=== PATIENT | female | born 1990 | race Caucasian/White ===

== ENCOUNTER 2016-09-05 22:23 | Emergency (ER) | payer OTHER ==
[2016-09-05 23:19] LABS: ABSOLUTE EOSINOPHILS # (AUTO) 0.2 10^3/uL (0.0-0.6); ABSOLUTE LYMPHOCYTES (AUTO) 3.1 10^3/uL (0.5-4.7); ABSOLUTE MONOCYTES (AUTO) 0.7 10^3/uL (0.1-1.4); BASOPHILS % (AUTO) 0.2 % (0-2); EOSINOPHILS % (AUTO) 2.3 % (0-6); HEMOGLOBIN 12.5 g/dL (12.0-15.5); HGB HCT DIFFERENCE -3.5; LYMPHOCYTES % (AUTO) 44.5 % (13-45); MEAN CORPUSCULAR HEMOGLOBIN 23.5 pg (27.0-33.4); MEAN CORPUSCULAR HGB CONC 30.6 g/dL (32.0-36.0); MEAN CORPUSCULAR VOLUME 77 fl (80-97); MONOCYTES % (AUTO) 9.8 % (3-13); RED BLOOD COUNT 5.34 10^6/uL (3.72-5.28); SEGMENTED NEUTROPHILS % (AUTO) 43.2 % (42-78)
[2016-09-05 23:38] LABS: ALANINE AMINOTRANSFERASE 37 U/L (9-52); ALBUMIN 4.3 g/dL (3.5-5.0); ALKALINE PHOSPHATASE 70 U/L (38-126); ANION GAP 12 (5-19); ASPARTATE AMINO TRANSFERASE 28 U/L (14-36); BILIRUBIN,DIRECT 0.3 mg/dL (0.0-0.4); BILIRUBIN,TOTAL 0.3 mg/dL (0.2-1.3); BLOOD UREA NITROGEN 14 mg/dL (7-20); CALCIUM 8.8 mg/dL (8.4-10.2); CARBON DIOXIDE 22 mmol/L (22-30); CHLORIDE 108 mmol/L (98-107); GLUCOSE 91 mg/dL (75-110); POTASSIUM 4.2 mmol/L (3.6-5.0); SODIUM 142.3 mmol/L (137-145); TOTAL PROTEIN 6.7 g/dL (6.3-8.2)
[2016-09-05] MEDS ORDERED: OXYCODONE-ACETAMINOPHEN 5-325 MG TABLET PO ONE (23:43)
--- NOTE | 2016-09-05 23:45 | ER Document Report ---
ED General - General Chief Complaint: Pain All Over Stated Complaint: BONE PAIN Time Seen by Provider: 09/05/16 23:26 Notes: Patient is a 25-year-old female with a history of lupus including lupus nephritis who comes emergency department for chief complaint of joint pain in her shoulders, knees, and ankles. She also has some pain in her wrist. She states that she arrived to this area 3 days ago and has had increased symptoms since that time. She is also looking for referral to primary care for the area. Patient denies any fevers, chills, shortness of breath, dizziness, swelling. TRAVEL OUTSIDE OF THE [place] IN LAST 30 DAYS: No - Related Data Allergies/Adverse Reactions: gabapentin Allergy (Verified 09/05/16 22:32) heparin Allergy (Verified 09/05/16 22:32) Past Medical History - General Information source: Patient - Social History Smoking Status: Never Smoker Frequency of alcohol use: None Drug Abuse: None Lives with: Spouse/Significant other Family History: Reviewed & Not Pertinent Patient has suicidal ideation: No Patient has homicidal ideation: No - Medical History Medical History: Negative Renal/ Medical History: Denies: Hx Peritoneal Dialysis Surgical Hx: Negative - Immunizations Immunizations up to date: Yes Hx Diphtheria, Pertussis, Tetanus Vaccination: Yes Review of Systems - Review of Systems Constitutional: No symptoms reported EENT: No symptoms reported Cardiovascular: No symptoms reported Respiratory: No symptoms reported Gastrointestinal: No symptoms reported Genitourinary: No symptoms reported Female Genitourinary: No symptoms reported Musculoskeletal: See HPI Skin: No symptoms reported Hematologic/Lymphatic: No symptoms reported Neurological/Psychological: No symptoms reported Physical Exam - Vital signs Vitals: Temp Pulse Resp BP Pulse Ox 97.6 F 79 18 115/71 99 09/05/16 22:29 09/05/16 22:29 09/05/16 22:29 09/05/16 22:29 09/05/16 22:29 Interpretation: Normal - General General appearance: Appears well, Alert In distress: None - HEENT Head: Normocephalic, Atraumatic Eyes: Normal Pupils: PERRL - Respiratory Respiratory status: No respiratory distress Chest status: Nontender Breath sounds: Normal Chest palpation: Normal - Cardiovascular Rhythm: Regular Heart sounds: Normal auscultation Murmur: No - Abdominal Inspection: Normal Distension: No distension Bowel sounds: Normal Tenderness: Nontender Organomegaly: No organomegaly - Back Back: Normal, Nontender - Extremities General upper extremity: Normal inspection, Nontender, Normal color, Normal ROM , Normal temperature General lower extremity: Other - There is some tenderness over both knees and both ankles on exam, no significant swelling or erythema, normal range of motion , normal distal neurovascular exam - Neurological Neuro grossly intact: Yes Cognition: Normal Orientation: AAOx4 [place] Coma Scale Eye Opening: Spontaneous [place] Coma Scale Verbal: Oriented [place] Coma Scale Motor: Obeys Commands [place] Coma Scale Total: 15 Speech: Normal Motor strength normal: LUE, RUE, LLE, RLE Sensory: Normal - Psychological Associated symptoms: Normal affect, Normal mood - Skin Skin Temperature: Warm Skin Moisture: Dry Skin Color: Normal Course - Re-evaluation Re-evalutation: Patient with some tenderness over her joints but no significant swelling, erythema, or concerning abnormality. Unremarkable vital signs. Unremarkable lab workup performed on protocol. Patient reporting difficulty sleeping due to pain. I did agree to give patient medication to take as needed for pains related to lupus is pending her follow- up with primary care and referral to rheumatology for additional management. Discussed steroid use, anti-inflammatories, she states that she is actually going to call her beauty counselor back home to see which anti-inflammatory they recommended for and they told her to avoid all but one. She states she has had poor results and bad side effects with prednisone in the past. - Vital Signs Vital signs: Temp Pulse Resp BP Pulse Ox 97.9 F 74 17 109/64 100 09/06/16 00:08 09/06/16 00:08 09/06/16 00:08 09/06/16 00:08 09/06/16 00:08 - Laboratory Result Diagrams: 09/05/16 22:40 09/05/16 22:40 Laboratory results interpreted by me: 09/05/16 09/05/16 22:40 22:40 RBC 5.34 H MCV 77 L MCH 23.5 L MCHC 30.6 L RDW 17.0 H Chloride 108 H Discharge - Discharge Clinical Impression: Joint pain, Lupus Condition: Stable Disposition: HOME, SELF-CARE Additional Instructions: Your kidney functioning is normal. No concerning abnormalities on your evaluation today. Continue Tylenol for pain and/or an anti-inflammatory of choice as recommended in the past by your beauty counselor. if needed take the prescribed pain medication. Follow closely with primary care referral for additional management including referral to rheumatology. Return to emergency department for any concerning or worsening symptoms including fever, shortness of breath, or any other concerning symptoms. Prescriptions: Morphine Sulfate [Morphine Ir 15 Mg Tablet] 15 mg PO Q4HP PRN #12 tablet PRN Reason: Referrals: ANAMIKA OSUNA MD [ACTIVE STAFF] - Follow up as needed
[2016-09-06 00:09] VITALS: BP 109/64
== END 2016-09-06 00:06 | disposition home or self-care (01) ==
LOC: ER 22:23
DX: M32.14 Glomerular disease in systemic lupus erythematosus (principal); Z88.8 Allergy status to other drugs, medicaments and biological substances; Z88.6 Allergy status to analgesic agent
CPT/HCPCS: 36415; 80053; 85025; 99283

== ENCOUNTER 2017-02-08 12:01 | Emergency (ER) | payer OTHER, MEDICARE ==
--- NOTE | 2017-02-08 12:34 | ER Document Report ---
ED Medical Screen (RME) - General Chief Complaint: Post Surgical Pain Stated Complaint: NECK HEAD PAIN Time Seen by Provider: 02/08/17 12:32 Notes: Last Wednesday patient had a lymph node dissection of her neck done at [facility] in [place]. She states that she is having a lot of pain around the site of the drain. She states that she was told to get the drain removed when she had 30 mL or less of fluid coming from it. She states she tried to be seen at the [facility] but they would not give her an appointment for 2 weeks. She states she has a history of thyroid cancer and they were checking for lymphoma. TRAVEL OUTSIDE OF THE [place] IN LAST 30 DAYS: No - Related Data Allergies/Adverse Reactions: gabapentin Allergy (Verified 02/08/17 12:05) heparin Allergy (Verified 02/08/17 12:05) hydroxychloroquine Allergy (Verified 02/08/17 12:05) Home Medications: Current Home Medications Acetaminophen with Codeine [Tylenol #3 Tablet] 300 mg PO PRN PRN 02/08/17 [ History] Levothyroxine Sodium 125 mcg PO DAILY 02/08/17 [History] Mycophenolate Mofetil [Cellcept] 1,000 mg PO DAILY 02/08/17 [History] Past Medical History - Social History Chew tobacco use (# tins/day): No Frequency of alcohol use: Occasional Drug Abuse: None Renal/ Medical History: Denies: Hx Peritoneal Dialysis - Immunizations Immunizations up to date: Yes Hx Diphtheria, Pertussis, Tetanus Vaccination: Yes Physical Exam - Vital signs Vitals: Temp Pulse Resp BP Pulse Ox 98.2 F 76 16 103/69 98 02/08/17 12:12 02/08/17 12:12 02/08/17 12:12 02/08/17 12:12 02/08/17 12:12 Course - Vital Signs Vital signs: Temp Pulse Resp BP Pulse Ox 98.2 F 76 16 103/69 98 02/08/17 12:12 02/08/17 12:12 02/08/17 12:12 02/08/17 12:12 02/08/17 12:12
[2017-02-08 13:21] LABS: ABSOLUTE EOSINOPHILS # (AUTO) 0.2 10^3/uL (0.0-0.6); ABSOLUTE LYMPHOCYTES (AUTO) 2.4 10^3/uL (0.5-4.7); ABSOLUTE MONOCYTES (AUTO) 0.6 10^3/uL (0.1-1.4); ABSOLUTE NEUT (AUTO) 4.4 10^3/uL (1.7-8.2); BASOPHILS % (AUTO) 0.4 % (0-2); EOSINOPHILS % (AUTO) 2.3 % (0-6); HEMATOCRIT 40.4 % (36.0-47.0); HEMOGLOBIN 13.1 g/dL (12.0-15.5); HGB HCT DIFFERENCE -1.1; LYMPHOCYTES % (AUTO) 32.1 % (13-45); MEAN CORPUSCULAR HEMOGLOBIN 24.2 pg (27.0-33.4); MEAN CORPUSCULAR HGB CONC 32.3 g/dL (32.0-36.0); MEAN CORPUSCULAR VOLUME 75 fl (80-97); MONOCYTES % (AUTO) 7.3 % (3-13); RED BLOOD COUNT 5.38 10^6/uL (3.72-5.28); RED CELL DISTRIBUTION WIDTH 16.6 % (11.5-14.0); SEGMENTED NEUTROPHILS % (AUTO) 57.9 % (42-78); WHITE BLOOD COUNT 7.6 10^3/uL (4.0-10.5)
[2017-02-08 13:42] LABS: ALANINE AMINOTRANSFERASE 53 U/L (9-52); ALBUMIN 4.5 g/dL (3.5-5.0); ALKALINE PHOSPHATASE 71 U/L (38-126); ANION GAP 11 (5-19); ASPARTATE AMINO TRANSFERASE 36 U/L (14-36); BILIRUBIN,DIRECT 0.2 mg/dL (0.0-0.4); BILIRUBIN,TOTAL 0.2 mg/dL (0.2-1.3); BLOOD UREA NITROGEN 11 mg/dL (7-20); CALCIUM 9.2 mg/dL (8.4-10.2); CARBON DIOXIDE 28 mmol/L (22-30); CHLORIDE 103 mmol/L (98-107); GLUCOSE 83 mg/dL (75-110); POTASSIUM 4.6 mmol/L (3.6-5.0); SODIUM 142.1 mmol/L (137-145); TOTAL PROTEIN 6.8 g/dL (6.3-8.2)
--- NOTE | 2017-02-08 15:55 | ER Document Report ---
ED General - General Chief Complaint: Post Surgical Pain Stated Complaint: NECK HEAD PAIN Time Seen by Provider: 02/08/17 12:32 Information source: Patient, Friend TRAVEL OUTSIDE OF THE [place] IN LAST 30 DAYS: No - HPI Context: 26-year-old female presents today with need of her WES drain to be removed from the left-sided her neck after she had a left dissection on Wednesday, [address] Lm Small, at [facility] in [facility]. Patient has a history of thyroid cancer, this was done to see if she has any malignancy, that was negative. Denies any fevers or chills. Patient has been draining only 5 mL's today. Patient was scheduled to have her drain removed today if she was still in [facility]. Denies any chest pain, shortness of breath, nausea, vomiting , blurred vision, double vision, loss of vision. Denies any abdominal pain, pelvic pain. Eating and drink without issues. Denies any purulent drainage. She has a follow-up scheduled in 3 weeks - Related Data Allergies/Adverse Reactions: gabapentin Allergy (Verified 02/08/17 12:05) heparin Allergy (Verified 02/08/17 12:05) hydroxychloroquine Allergy (Verified 02/08/17 12:05) Home Medications: Current Home Medications Acetaminophen with Codeine [Tylenol #3 Tablet] 300 mg PO PRN PRN 02/08/17 [ History] Levothyroxine Sodium 125 mcg PO DAILY 02/08/17 [History] Mycophenolate Mofetil [Cellcept] 1,000 mg PO DAILY 02/08/17 [History] Past Medical History - General Information source: Patient - Social History Smoking Status: Never Smoker Chew tobacco use (# tins/day): No Frequency of alcohol use: Occasional Drug Abuse: None Family History: Reviewed & Not Pertinent Patient has suicidal ideation: No Patient has homicidal ideation: No Renal/ Medical History: Denies: Hx Peritoneal Dialysis - Immunizations Immunizations up to date: Yes Hx Diphtheria, Pertussis, Tetanus Vaccination: Yes Review of Systems - Review of Systems Constitutional: See HPI EENT: No symptoms reported Cardiovascular: No symptoms reported Respiratory: No symptoms reported Gastrointestinal: No symptoms reported Genitourinary: No symptoms reported Musculoskeletal: No symptoms reported Skin: See HPI Hematologic/Lymphatic: No symptoms reported Neurological/Psychological: No symptoms reported -: Yes All other systems reviewed and negative Physical Exam - Vital signs Vitals: Temp Pulse Resp BP Pulse Ox 98.2 F 76 16 103/69 98 02/08/17 12:12 02/08/17 12:12 02/08/17 12:12 02/08/17 12:12 02/08/17 12:12 Interpretation: Normal - General General appearance: Appears well In distress: None - HEENT Head: Normocephalic Eyes: Normal Cornea: Normal Extraocular movements intact: Yes Ears: Normal External canal: Normal Tympanic membrane: Normal Hearing loss: Left Sinus: Normal Nasal: Normal Mouth/Lips: Normal Mucous membranes: Normal Pharynx: Normal Neck: Normal, Other - left WES drain intact with sutures, no surrounding erythema , induration, warmth to touch or drainage around insertion site. WES drain with serous fluid. - Respiratory Respiratory status: No respiratory distress Chest status: Nontender Breath sounds: Normal Chest palpation: Normal - Cardiovascular Rhythm: Regular Heart sounds: Normal auscultation Normal capillary refill: Yes - Abdominal Inspection: Normal Distension: No distension Bowel sounds: Normal Tenderness: Nontender Organomegaly: No organomegaly - Psychological Associated symptoms: Normal affect, Normal mood - Skin Skin Temperature: Warm Skin Moisture: Dry Skin Color: Normal - see HEENT note with regards to the drain Course - Re-evaluation Re-evalutation: 02/08/17 15:55 After performing a Medical Screening Examination, I estimate there is LOW risk for CENTRAL CORD SYNDROME, EPIDURAL MASS LESION, SEVERE SPINAL STENOSIS, ARTERIAL DISSECTION, MENINGITIS, or ACUTE CORONARY SYNDROME, thus I consider the discharge disposition reasonable. I have reevaluated this patient multiple times and no significant life threatening changes are noted. The patient and I have discussed the diagnosis and risks, and we agree with discharging home to follow-up on an outpatient basis with the understanding that symptoms and presentations can change. We also discussed returning to the Emergency Department immediately if new or worsening symptoms occur. We have discussed the symptoms which are most concerning (e.g., saddle anesthesia, urinary or bowel incontinence or retention, changing or worsening pain) that necessitate immediate return. - Vital Signs Vital signs: Temp Pulse Resp BP Pulse Ox 98.2 F 76 16 103/69 98 02/08/17 12:12 02/08/17 12:12 02/08/17 12:12 02/08/17 12:12 02/08/17 12:12 - Laboratory Result Diagrams: 02/08/17 13:08 02/08/17 13:08 Laboratory results interpreted by me: 02/08/17 02/08/17 13:08 13:08 RBC 5.38 H MCV 75 L MCH 24.2 L RDW 16.6 H Creatinine 0.50 L ALT 53 H Discharge - Discharge Clinical Impression: Change or removal of drains Condition: Good Disposition: HOME, SELF-CARE Additional Instructions: Follow-up with as directed. Return to emergency room signs and symptoms become worse from drain removal. Monitor for any fevers or chills, take ibuprofen and Tylenol as needed for pain. Follow-up with PCP within 24 hours. Referrals: ROLLY LYNNE MD [COMMUNITY BASED STAFF] - Follow up as needed
[2017-02-08 17:04] VITALS: BP 106/59
== END 2017-02-08 17:04 | disposition home or self-care (01) ==
LOC: ER 12:01
DX: Z48.03 Encounter for change or removal of drains (principal); Z85.850 Personal history of malignant neoplasm of thyroid; Z98.890 Other specified postprocedural states; Z88.6 Allergy status to analgesic agent; Z88.8 Allergy status to other drugs, medicaments and biological substances
CPT/HCPCS: 36415; 80053; 85025; 99283